=== PATIENT | female | born 1985 | race Caucasian/White ===

== ENCOUNTER 2020-11-04 19:33 | Emergency (ER) | payer OTHER ==
[~2020-11-04 19:33] MED LIST: IBUPROFEN800 MG PO; MEDROL 4MG DOSEP4 MG PO; METRONIDAZOLE500 MG PO; PERCOCET 5-3251 EACH PO
[2020-11-04 20:03] LABS: BASOPHIL 0.4 % (0-2); BILIRUBIN NEGATIVE (NEGATIVE); BLOOD 2+ Ery/uL (NEGATIVE); CLARITY CLEAR (CLEAR); COLOR YELLOW (YELLOW); EOSINOPHIL 2.6 % (0-5); GLUCOSE (U) NORMAL (NORMAL); HCT 39.2 % (37.0-47.0); HGB 13.2 g/dl (12.5-16.0); LEUKOCYTES 1+ Leu/uL (NEGATIVE); LYMPHOCYTE 25.8 % (15-48); MCH 32.1 pg (25.0-31.0); MCHC 33.7 g/dL (32.0-36.0); MCV 95.4 fL (78.0-100.0); MONOCYTE 5.5 % (0-12); MPV 9.3 fL (6.0-9.5); NEUTROPHIL 65.4 % (41-80); NITRITE NEGATIVE (NEGATIVE); NRBC 0; PLT 294 K/uL (150-400); PROTEIN NEGATIVE (NEGATIVE); RBC 4.11 M/uL (4.20-5.40); RDW 12.3 % (11.5-14.0); UROBILINOGEN 0.2 mg/dL (0.2-1.0); WBC 9.8 K/uL (4.0-10.5)
[2020-11-04 20:09] LABS: AMORPHOUS URATES CRYSTALS TRACE; BACTERIA 2+
[2020-11-04 20:20] LABS: ALBUMIN 3.9 g/dL (3.4-5.0); BILIRUBIN - TOTAL 0.2 mg/dL (0.2-1.0); BUN/CREAT RATIO (CALC) 11.5 RATIO; CREATININE 0.78 mg/dL (0.51-0.95); GLOBULIN (CALCULATION) 3.5 g/dL; POTASSIUM 3.5 mmol/L (3.5-5.1); TOTAL PROTEIN 7.4 g/dL (6.4-8.2)
[2020-11-04] MEDS ORDERED: ONDANSETRON ODT4 MG SL (22:40)
[2020-11-04] MEDS ORDERED: NORCO 5-325 TA1 EACH PO (22:40)
[2020-11-04] MEDS ORDERED: CIPRO500 MG PO (22:40)
[2020-11-07 20:13] LABS: CHLAMYDIA TRACHOMATIS, NAA Negative (Negative); NEISSERIA GONORRHOEAE, NAA Negative (Negative)
== END 2020-11-04 22:55 | disposition home or self-care (01) ==
LOC: FER 19:33
PROVIDERS: Emergency Medicine Emergency Medical Services
DX: N30.01 Acute cystitis with hematuria (principal); F17.210 Nicotine dependence, cigarettes, uncomplicated; Z90.79 Acquired absence of other genital organ(s)
CPT/HCPCS: 36415; 80053; 81001; 83605; 85025; 87210; 87491; 87591; 96372; J0696; J1170; J1885; J2405; J7030